=== PATIENT | male | born 1965 | race Caucasian/White ===

== ENCOUNTER → 2024-02-13 09:18 | Outpatient (REF) | payer OTHER, SELFPAY ==
[2024-02-13 10:34] LABS: % Basophils 0.7 % (0-2); % Eosinophils 3.6 % (0-6); % Immature Granulocytes 0.1 % (0-0.5); % Lymphocytes 29.9 % (20.5-51.1); % Monocytes 7.9 % (1.7-9.3); % Neutrophils 57.8 % (42.2-75.2); Absolute Basophils 0.1 10^3/uL (0-0.2); Absolute Eosinophils 0.3 10^3/uL (0-0.7); Absolute Lymphocytes 2.1 10^3/uL (1.2-3.4); Absolute Monocytes 0.6 10^3/uL (0.1-0.6); Hematocrit 43.2 % (39.0-52.0); Hemoglobin 14.1 g/dL (13.0-18.0); Mean Corp Hgb Conc. 32.6 g/dL (33.0-37.0); Mean Corpuscular Hgb 28.6 pg (27.0-31.0); Mean Corpuscular Volume 87.6 fL (80.0-94.0); Mean Platelet Volume 10.3 fL (7.4-10.4); Nucleated Red Blood Cells % 0 % (-); Platelet Count 218 10^3/uL (130-400); Red Blood Cell Count 4.93 10^6/uL (4.70-6.10); Red Cell Dist. Width 13.1 % (11.5-14.5); White Blood Cell Count 6.9 10^3/uL (4.8-10.8)
[2024-02-13 10:53] LABS: Urine Albumin Negative (Neg - Trace); Urine Bilirubin Negative (Negative); Urine Character Clear (Clear); Urine Color Yellow; Urine Glucose Negative (Negative); Urine Ketone Negative (Negative); Urine Leukocyte Trace (Negative); Urine Nitrite Negative (Negative); Urine Occult Blood Negative (Negative); Urine Urobilinogen Negative (Neg - 1+)
[2024-02-13 11:37] LABS: Urine Red Blood Cell 0-2 /HPF (0-2); Urine Squamous Cell 0-2 /LPF (Few); Urine White Cell 0-2 /HPF (0-5)
[2024-02-13 12:13] LABS: ALT (SGPT) 25 U/L (0-50); AST (SGOT) 28 U/L (17-59); Albumin 4.7 g/dl (3.5-5.0); Alkaline Phosphatase 63 U/L (38-126); Blood Urea Nitrogen 23 mg/dl (9-20); Calcium 9.9 mg/dl (8.4-10.2); Carbon Dioxide 24 mmol/L (22-30); Chloride 103 mmol/L (98-107); Glucose 96 mg/dl (70-99); HDL Cholesterol 43 mg/dl; LDL Cholesterol, Calculated 67 mg/dl; Potassium 4.5 mmol/L (3.5-5.1); Sodium 139 mmol/L (135-145); Total Bilirubin 0.8 mg/dl (0.2-1.3); Total Cholesterol 135 mg/dl (50-199); Total Protein 7.1 g/dl (6.3-8.2); Triglyceride 127 mg/dl (10-149); Very Low Density Lipoprotein 25 mg/dl (0-30); eGFR > 60.00
[2024-02-13 12:55] LABS: PSA, Total - Screen 1.12 ng/ml (0.0-4.0)
== END ==
LOC: REG 09:18
PROVIDERS: ATTENDING PHYSICIAN Family Medicine
DX: I10 Essential (primary) hypertension (principal); E78.2 Mixed hyperlipidemia; R73.09 Other abnormal glucose; R94.5 Abnormal results of liver function studies
CPT/HCPCS: 36415; 80053; 80061; 81003; 81015; 83036; 85025; 86480; G0103

== ENCOUNTER → 2025-05-16 08:50 | Outpatient (REF) | payer OTHER, SELFPAY ==
[2025-05-16 09:59] LABS: ALT (SGPT) 25 U/L (0-50); AST (SGOT) 25 U/L (17-59); Albumin 4.8 g/dl (3.5-5.0); Alkaline Phosphatase 45 U/L (38-126); Blood Urea Nitrogen 20 mg/dl (9-20); Calcium 9.4 mg/dl (8.4-10.2); Carbon Dioxide 26 mmol/L (22-30); Chloride 107 mmol/L (98-107); Glucose 104 mg/dl (70-99); Potassium 4.8 mmol/L (3.5-5.1); Sodium 141 mmol/L (135-145); Total Protein 7.0 g/dl (6.3-8.2); eGFR > 60.00
[2025-05-16 10:51] LABS: Glycohemoglobin (HgbA1c) 5.7 % (4.0-5.6)
[2025-05-16 14:33] LABS: PSA, Total - Screen 1.31 ng/ml (0.0-4.0)
== END ==
LOC: REG 08:50
PROVIDERS: ATTENDING PHYSICIAN Family Medicine
DX: R73.09 Other abnormal glucose (principal); Z12.5 Encounter for screening for malignant neoplasm of prostate; E34.9 Endocrine disorder, unspecified
CPT/HCPCS: 36415; 80053; 83036; 84403; G0103

== ENCOUNTER 2025-07-04 17:02 | Emergency (ER) | payer OTHER, SELFPAY ==
[2025-07-04 15:44] VITALS: BP 124/86
--- NOTE | 2025-07-04 16:31 | ED.GENMED ---
History of Present Illness
General
Chief Complaint: Abdominal Symptoms
Time Seen by Provider: 07/04/25 16:18
History of Present Illness
History of Present Illness:
60-year-old man presenting to the emergency department with diarrhea. Patient states that on June 27 he had a anoscopy that was normal. Since then he was having difficulty urinating and having bowel movement. He went to his primary care doctor
who started him on Augmentin for possible diverticulitis. For the past 3 days he has been having chills watery diarrhea with some mucus. The diarrhea is every hour. No blood. No vomiting. He did travel to [place]. He is currently on Augmentin.
No new foods. He does state that he was constipated for this prior to the diarrhea
Past History
Past History
ED Past Surgical History: Tonsilectomy and Other (Hernia)
Social History
Tobacco: Non-smoker
Phy Exam
Physical Exam
Physical Exam:
GENERAL: in no acute distress
HEENT: normocephalic, extraocular movements intact, dry oral mucosa
NECK: normal inspection
RESPIRATORY: no respiratory distress, clear to auscultation bilaterally
CARDIOVASCULAR: regular rate and rhythm
ABDOMEN/: soft, non-distended, left lower quadrant tenderness to palpation, no rebound or guarding
EXTREMITIES: non-tender, no edema/swelling
NEUROLOGIC: awake and alert, moves all extremities
SKIN: warm
Course
Orders/Labs/Results
Orders:
Orders
07/04/25 16:30
CT Abd/pelvis W Iv Cont Urgent
Comment:
Reason For Exam: llq ttp
Stool Culture Urgent
YELENA Source: Feces/Stool
Specimen Description:
Stool For WBC Urgent
YELENA Source: Feces/Stool
Specimen Description:
Stool for Occult Blood Routine
07/04/25 16:31
0.9% Sodium Chloride 1000 ml [Nss] 1,000 ml IV BOLUS
07/04/25 16:32
Complete Blood Count/With Diff Urgent
Comprehensive Metabolic Panel Urgent
07/04/25 19:10
Urinalysis Reflex To Culture Urgent
Date Specimen was Collected: 07/04/25
Time Specimen was Collected: 17:26
Urine Microscopic Reflex Cult Urgent
Abnormal Lab Results
07/04/25 07/04/25
16:32 19:10
MCHC 31.6 L g/dL
(33.0-37.0)
Absolute Lymphs (auto) 1.0 L 10^3/uL
(1.2-3.4)
Absolute Monos (auto) 0.7 H 10^3/uL
(0.1-0.6)
Lymphocytes % 18.5 L %
(20.5-51.1)
Monocytes % 13.0 H %
(1.7-9.3)
Carbon Dioxide 21 L mmol/L
(22-30)
Urine Ketones 2+ A
(Negative)
Urine Bacteria (Reflex) Few A
(Negative)
Urine Albumin (Reflex) 2+ A
(Neg - Trace)
07/04/25 16:32
07/04/25 16:32
Vital Signs
Initial and Last Documented VS:
Initial Vital Signs
Temp Pulse Resp BP Pulse Ox
98.4 F 76 16 124/86 96
07/04/25 15:44 07/04/25 15:44 07/04/25 15:44 07/04/25 15:44 07/04/25 15:44
Last Documented Vital Signs
Temp Pulse Resp BP Pulse Ox
98.4 F 76 16 124/86 96
07/04/25 15:44 07/04/25 15:44 07/04/25 15:44 07/04/25 15:44 07/04/25 16:33
MDM/Problems Addressed
Differential Diagnosis Includes:
Patient is a 60-year-old man presenting to the emergency department with abdominal pain and diarrhea for the past few days currently on Augmentin. Vitals are unremarkable and exam does show dry oral mucosa and tenderness to palpation of the left
lower quadrant. Differential is broad but consists of diverticulitis versus constipation versus rectal impaction versus urine infection. History and exam less likely to be surgical abdomen. Will proceed with basic blood work urine stool sample
and CT scan. Will give fluids.
*Pulse Oximetry
SaO2: 96
Oxygen Mode of Delivery: Room air
Patient hypoxic: no
*Critical Care Note
Total Time (30-74mins, 75-104mins- exclusive of procedures): Not Applicable
Update Note
Update Note:
Blood work reassuring. CT scan negative. Stool cultures pending. Will discharge patient at this time with outpatient follow-up. Patient aware to continue Augmentin
ED Attending Note
-
Portions of this chart may have been created with voice recognition software.� Occasional wrong word or��sound alike� substitutions may have occurred due to the inherent limitations of voice recognition software.
Discharge Plan
Departure
Patient Disposition: Home (Routine Discharge)
Date of Disposition: 07/04/25
Time of Disposition: 20:10
Patient with high blood pressure during this ER visit?: No
Discharge Problem:
Diarrhea
Instructions: Diarrhea in teens and adults
Prescriptions:
No Action
zolpidem 10 MG tablet
10 mg PO HS
Patient Comments:
03/29/21 - pt last picked up 02/12/21 #90
loratadine 10 MG tablet
10 mg PO QPM
B-complex with vitamin C 1 CAPLET tablet
1 cap PO QPM
escitalopram oxalate 10 MG tablet
10 mg PO QPM
celecoxib 200 MG capsule
200 mg PO DAILY
Ashwagandha Gummy
1 gum PO HS
ibuprofen 800 mg Tablet
800 mg PO PRN PRN (Reason: pain)
acetaminophen [Tylenol Arthritis] 650 mg Tablet Extended Release
1,300 mg PO PRN PRN (Reason: pain)
famotidine [Pepcid AC Maximum Strength] 20 mg Tablet
20 mg PO DAILY
benazepril 40 mg Tablet
40 mg PO HS
rosuvastatin 20 mg Tablet
20 mg PO HS
cholecalciferol (vitamin D3) [Vitamin D3] 125 mcg (5,000 unit) Tablet
125 mcg PO HS
Centrum Minis Men 50 Plus [id number] mcg Tablet
1 tab PO HS
Ultimate Berkey
1 cap PO HS
Referrals:
Beranbe Viveros DO [Family Provider, Family Practice]
Activity Restrictions/Additional Instructions:
You were seen in the Emergency Department today for diarrhea. While you were here we performed blood work, which was reassuring. We will call you if your cultures are positive.
We would like for you to follow up with your primary care physician for further evaluation. If you experience fever, worsening of your symptoms, or develop any other new or concerning symptoms, please return to the Emergency Department immediately.
Please see the attached sheet for additional information.
Interventions
Interventions:
*Risk Screen - Suicide Last Done: 07/04/25 15:44
*General Assessment Last Done: 07/04/25 17:29
*Neglect/Abuse Screening Last Done: 07/04/25 15:44
GL-Xowzby-Wqknjoexol Assessment Last Done: 07/04/25 16:37
Discharge Date and Time
Print Language: NEPALI
[2025-07-04] MEDS: NSS 1000 IV (16:32)
[2025-07-04 16:37] VITALS: BMI 48.8
[2025-07-04 16:43] LABS: Hematocrit 47.1 % (39.0-52.0); Hemoglobin 14.9 g/dL (13.0-18.0); Mean Corp Hgb Conc. 31.6 g/dL (33.0-37.0); Mean Corpuscular Volume 86.7 fL (80.0-94.0); Nucleated Red Blood Cells % 0 % (-); Platelet Count 278 10^3/uL (130-400); Red Cell Dist. Width 13.6 % (11.5-14.5)
[2025-07-04 17:23] LABS: ALT (SGPT) 23 U/L (0-50); AST (SGOT) 27 U/L (17-59); Albumin 4.9 g/dl (3.5-5.0); Alkaline Phosphatase 54 U/L (38-126); Blood Urea Nitrogen 18 mg/dl (9-20); Calcium 9.6 mg/dl (8.4-10.2); Carbon Dioxide 21 mmol/L (22-30); Chloride 105 mmol/L (98-107); Estimated Creatinine Clearance 74 ml/min; Glucose 99 mg/dl (70-99); Potassium 4.6 mmol/L (3.5-5.1); Sodium 135 mmol/L (135-145); Total Protein 7.7 g/dl (6.3-8.2); eGFR > 60.00
[2025-07-04 19:15] LABS: Urine Character Clear (Clear)
[2025-07-04 19:33] LABS: Urine Squamous Cell 0-2 /LPF (Few)
[2025-07-04 19:34] LABS: Urine Red Blood Cell 0-2 /HPF (0-2); Urine White Cell 0-2 /HPF (0-5)
== END 2025-07-04 20:25 | disposition home or self-care (01) ==
LOC: EMR 17:02
PROVIDERS: EMERGENCY PHYSICIAN Student in an Organized Health Care Education/Training Program; FAMILY PHYSICIAN Family Medicine
DX: K59.00 Constipation, unspecified (principal); Z79.2 Long term (current) use of antibiotics
CPT/HCPCS: 99284; 74177; 80053; 81003; 81015; 85025; 87045; 87046; 87427; 89055; Q9967